=== PATIENT | male | born 1990 | race Two or more races ===

== ENCOUNTER 2021-11-02 10:58 | Emergency (ER) | payer SELFPAY ==
[2021-11-02 12:32] LABS: SARS-COV-2 RT PCR NEGATIVE (NEGATIVE)
--- NOTE | 2021-11-02 12:48 | ER ---
Nurse's Notes [facility] Name: Armond Perkins Age: 31 yrs Sex: Male : 1990 Arrival Date: 11/02/2021 Time: 10:59 Bed 10 Private MD: Diagnosis: Acute frontal sinusitis;Nasal congestion Presentation: 11/02 11:19 Chief complaint: Patient states: "I have been having sinus pressure in my head for a ab2 week, now my eyes are draining and it concerned me.". Coronavirus screen: Vaccine status: Patient reports being unvaccinated. Client denies travel out of the [place] in the last 14 days. congestion, runny nose, sore throat, Client presents with at least one sign or symptom that may indicate coronavirus-19. Standard/surgical mask placed on the client. Provider contacted for isolation considerations. Ebola Screen: Patient negative for fever greater than or equal to 101.5 degrees Fahrenheit, and additional compatible Ebola Virus Disease symptoms Patient denies exposure to infectious person. Patient denies travel to an Ebola-affected area in the 21 days before illness onset. No symptoms or risks identified at this time. Initial Sepsis Screen: Does the patient meet any 2 criteria? No. Patient's initial sepsis screen is negative. Does the patient have a suspected source of infection? No. Patient's initial sepsis screen is negative. Risk Assessment: Do you want to hurt yourself or someone else? Patient reports no desire to harm self or others. Onset of symptoms is unknown. 11:19 Method Of Arrival: Ambulatory ab2 11:19 Acuity: KRISS 4 ab2 Triage Assessment: 11:22 General: Appears in no apparent distress. ab2 Historical: - Allergies: 11:20 No Known Allergies; ab2 - PMHx: 11:20 None; ab2 - PSHx: 11:20 Hernia repair; ab2 - Immunization history:: Adult Immunizations up to date. - Social history:: Smoking status: Patient reports the use of cigarette tobacco products, smokes one pack cigarettes per day. Screenin:36 Abuse screen: Denies threats or abuse. Denies injuries from another. Nutritional ld1 screening: No deficits noted. Tuberculosis screening: No symptoms or risk factors identified. Fall Risk None identified. Assessment: 11:21 General: Appears in no apparent distress. comfortable, Behavior is calm, cooperative, ab2 appropriate for age. Pain: Complains of pain in head. Neuro: No deficits noted. Level of Consciousness is awake, alert, obeys commands, Oriented to person, place, time, situation, Appropriate for age Survey Instrument Operator are equal bilaterally Moves all extremities. Cardiovascular: No deficits noted. Denies chest pain, shortness of breath, Patient's skin is warm and dry. Respiratory: Airway is patent Respiratory effort is even, unlabored. Respiratory:. GI: No deficits noted. No signs and/or symptoms were reported involving the gastrointestinal system. : No deficits noted. No signs and/or symptoms were reported regarding the genitourinary system. EENT: Throat is reddened. Derm: No deficits noted. No signs and/or symptoms reported regarding the dermatologic system. Skin is intact, Skin is pink, warm \\T\\ dry. 12:36 Respiratory: Breath sounds are clear bilaterally. ld1 Vital Signs: 11:19 BP 129 / 73; Pulse 100; Resp 18; Temp 97.2(TE); Pulse Ox 98% on R/A; Weight 95.25 kg; ab2 Height 5 ft. 4 in. (162.56 cm); 12:36 BP 131 / 72; Pulse 96; Resp 18; Pulse Ox 99% on R/A; Pain 0/10; ld1 11:19 Body Mass Index 36.04 (95.25 kg, 162.56 cm) ab2 ED Course: 10:59 Patient arrived in ED. am2 11:18 Helio Davis FNP-C [facility]. la1 11:18 Swathi Amador MD is Attending Physician. la1 11:20 Triage completed. ab2 11:22 Arm band placed on right wrist. ab2 11:47 COVID-19/FLU A+B (Document "Date of Onset" if Symptomatic) Sent. ab2 11:47 Strep Sent. ab2 12:35 Daniela Beach, ALISON is Primary Nurse. ld1 12:36 Patient has correct armband on for positive identification. Bed in low position. Call ld1 light in reach. Side rails up X2. Pulse ox on. NIBP on. Door closed. Noise minimized. Warm blanket given. 12:36 No provider procedures requiring assistance completed. Patient did not have IV access ld1 during this emergency room visit. Administered Medications: No medications were administered Outcome: 12:48 Discharge ordered by MD. la1 12:52 Discharged to home ambulatory. ld1 12:52 Condition: stable 12:52 Discharge instructions given to patient, Instructed on discharge instructions, follow up and referral plans. medication usage, Demonstrated understanding of instructions, follow-up care, medications. 12:53 Patient left the ED. ld1 Signatures: Helio Davis, POSTAL DELIVERY OFFICER-C POSTAL DELIVERY OFFICER-Cla1 Breanna Joyce am2 Daniela Beach RN RN ld1 Brooks Langley ab2 Corrections: (The following items were deleted from the chart) 11:22 11:19 BP 135 / 93; Pulse 100bpm; Resp 18bpm; Pulse Ox 98% RA; Temp 97.2F Temporal; ab2 95.25 kg; Height 5 ft. 4 in.; BMI: 36.0; ab2
--- NOTE | 2021-11-02 12:48 | EDPHYS ---
Physician Documentation [facility] Name: Armond Perkins Age: 31 yrs Sex: Male : 1990 Arrival Date: 11/02/2021 Time: 10:59 Bed 10 Private MD: ED Physician Swathi Amador HPI: 11/02 12:10 This 31 yrs old Male presents to ER via Ambulatory with complaints of Sinus Congestion, la1 Drainage From Eye, Sore Throat. 12:10 The patient or guardian reports cough, that is intermittent, described as mild, with no la1 sputum, flu symptoms, low-grade fever, myalgias. Onset: The symptoms/episode began/occurred 1 week(s) ago. Severity of symptoms: At their worst the symptoms were mild, in the emergency department the symptoms are unchanged. Modifying factors: The symptoms are alleviated by nothing, the symptoms are aggravated by nothing. Associated signs and symptoms: Pertinent positives: fever, rhinorrhea, sore throat, sinus pressure. The patient has not experienced similar symptoms in the past. Historical: - Allergies: 11:20 No Known Allergies; ab2 - PMHx: 11:20 None; ab2 - PSHx: 11:20 Hernia repair; ab2 - Immunization history:: Adult Immunizations up to date. - Social history:: Smoking status: Patient reports the use of cigarette tobacco products, smokes one pack cigarettes per day. ROS: 12:11 Eyes: + for reported discharge ENT: + sore throat and sinus pressure la1 12:11 Neck: Negative for injury, pain, and swelling, Cardiovascular: Negative for chest pain, palpitations, and edema, Respiratory: +intermittent cough Abdomen/GI: Negative for abdominal pain, nausea, vomiting, diarrhea, and constipation, Back: Negative for injury and pain, MS/Extremity: Negative for injury and deformity, Neuro: Negative for headache, weakness, numbness, tingling, and seizure. 12:11 Constitutional: Positive for body aches, chills, fever, malaise. Exam: 12:12 Constitutional: This is a well developed, well nourished patient who is awake, alert, la1 and in no acute distress. Head/Face: Normocephalic, atraumatic. Eyes: Pupils equal round and reactive to light, extra-ocular motions intact. Lids and lashes normal. Conjunctiva and sclera are non-icteric and not injected. Cornea within normal limits. Periorbital areas with no swelling, redness, or edema. ENT: Nares patent. No nasal discharge, no septal abnormalities noted. Tympanic membranes are normal and external auditory canals are clear. Oropharynx with redness, no swelling, or exudates, or evidence of obstruction, uvula midline. Mucous membranes moist. Neck: Trachea midline, no thyromegaly or masses palpated, + lymphadenopathy. Supple, full range of motion without nuchal rigidity, or vertebral point tenderness. No Meningismus. Chest/axilla: Normal chest wall appearance and motion. Nontender with no deformity. No lesions are appreciated. Cardiovascular: Regular rate and rhythm with a normal S1 and S2. Respiratory: Lungs have equal breath sounds bilaterally Abdomen/GI: Soft, non-tender, with normal bowel sounds. MS/ Extremity: Pulses equal, no cyanosis. Neurovascular intact. Full, normal range of motion. Neuro: Awake and alert, GCS 15, oriented to person, place, time, and situation. Vital Signs: 11:19 BP 129 / 73; Pulse 100; Resp 18; Temp 97.2(TE); Pulse Ox 98% on R/A; Weight 95.25 kg; ab2 Height 5 ft. 4 in. (162.56 cm); 12:36 BP 131 / 72; Pulse 96; Resp 18; Pulse Ox 99% on R/A; Pain 0/10; ld1 11:19 Body Mass Index 36.04 (95.25 kg, 162.56 cm) ab2 MDM: 12:30 Patient medically screened. la1 12:45 Data reviewed: vital signs, nurses notes, lab test result(s), and as a result, I will la1 discharge patient. Data interpreted: Pulse oximetry: on room air is 99 %. Interpretation: normal. Counseling: I had a detailed discussion with the patient and/or guardian regarding: the historical points, exam findings, and any diagnostic results supporting the discharge/admit diagnosis, lab results, the need for outpatient follow up, a family practitioner, to return to the emergency department if symptoms worsen or persist or if there are any questions or concerns that arise at home. Special discussion: I discussed with the patient/guardian that the patient's current presentation does not indicate dosing of antibiotics. They should follow-up with their primary care provider and return if the symptoms persist or progress. 11/02 11:23 Order name: Strep; Complete Time: 12:37 la1 11/02 11:23 Order name: COVID-19/FLU A+B (Document "Date of Onset" if Symptomatic); Complete Time: la1 12:37 11/02 12:04 Order name: Throat Culture EDMS Administered Medications: No medications were administered Disposition: 18:42 Co-signature as Attending Physician, Swathi Amador MD. ma2 Disposition Summary: 11/02/21 12:48 Discharge Ordered Location: Home la1 Problem: new la1 Symptoms: are unchanged la1 Condition: Stable la1 Diagnosis - Acute frontal sinusitis la1 - Nasal congestion la1 Followup: la1 - With: Private Physician - When: 5 - 6 days - Reason: Recheck today's complaints, Re-evaluation by your physician Discharge Instructions: - Discharge Summary Sheet la1 - Sinusitis, Adult la1 - Upper Respiratory Infection, Adult la1 Forms: - Medication Reconciliation Form la1 - Thank You Letter la1 Prescriptions: - [id number] 2-30-10 mg/5 mL Oral syrup - take 10 milliliter by ORAL route every 4 hours; 240 milliliter; Refills: 0, la1 Product Selection Permitted Signatures: Dispatcher [employer] EDMS Helio Davis, SKI MOLDER-C SKI MOLDER-Cla1 Swathi Amador MD MD ma2 Brooks Langley
[2021-11-02 13:01] VITALS: TEMP 97.2
[2021-11-02 13:03] VITALS: BP 131/72; O2SAT 99
== END 2021-11-02 12:53 | disposition home or self-care (01) ==
LOC: ER 10:58
DX: J01.10 Acute frontal sinusitis, unspecified (principal); F17.210 Nicotine dependence, cigarettes, uncomplicated; Z20.822 Contact with and (suspected) exposure to COVID-19
CPT/HCPCS: 0240U; 87070; 87081; 99283